=== PATIENT | male | born 1965 | race Caucasian/White ===

== ENCOUNTER 2020-07-01 11:21 | Emergency (ER) | payer SELFPAY ==
[~2020-07-01] VITALS: Ht 175.3 cm; Wt 180.0 kg
[2020-07-01 11:55] LABS: BASO # 0.1 x10^3/uL (0.0-0.2); BASO % 1 % (0-3); EOS # 0.1 x10^3/uL (0.0-0.7); EOS % 1 % (0-3); HEMATOCRIT 40.9 % (39.0-53.0); HEMOGLOBIN 13.6 g/dL (13.0-17.5); LYMPH % 9 % (24-48); MEAN CORPUSCULAR HEMOGLOBIN 33 pg (25-35); MEAN CORPUSCULAR HGB CONC 33 g/dL (31-37); MEAN CORPUSCULAR VOLUME 100 fL (79-100); MONO # 0.6 x10^3/uL (0.0-1.1); MONO % 5 % (0-9); NEUT # 8.9 x10^3uL (1.8-7.7); NEUT % 84 % (31-73); PLATELET COUNT 232 x10^3/uL (140-400); RED BLOOD COUNT 4.08 x10^6/uL (4.30-5.70); RED CELL DISTRIBUTION WIDTH 16.5 % (11.5-14.5); WHITE BLOOD COUNT 10.5 x10^3/uL (4.0-11.0)
[2020-07-01 11:59] LABS: CALCIUM 6.9 mg/dL (8.5-10.1); CREATININE 0.9 mg/dL (0.7-1.3); GFR 88.6
[2020-07-01 12:02] LABS: POTASSIUM 3.7 mmol/L (3.5-5.1)
[2020-07-01 12:07] LABS: ALBUMIN 2.8 g/dL (3.4-5.0); ALBUMIN/GLOBULIN RATIO 0.9 (1.0-1.7); TOTAL BILIRUBIN 0.3 mg/dL (0.2-1.0); TOTAL PROTEIN 5.8 g/dL (6.4-8.2)
[2020-07-01] MEDS ORDERED: ONDANSETRON PF 4 MG/2 ML VIAL. IVP ONE (12:15)
--- NOTE | 2020-07-01 12:44 | PHYS DOC ---
Past History Past Medical History: No Pertinent History, Other Additional Past Medical Histor: unknown Past Surgical History: Other Additional Past Surgical Histo: unknown Alcohol Use: Heavy Adult General Chief Complaint Chief Complaint: ALCOHOL INTOXICATION HPI HPI Patient is a 54-year-old male with past medical history of alcoholism who presents to the emergency room after being found in the road intoxicated. Patient had a liter of vodka code with him. Patient is unable to provide a history and does not answer very many questions. According to EMS he had normal glucose prior to arrival and they got a temperature of 97.7 on the patient. He is well-known to EMS as they picked him up often for alcohol intoxication after being found in the street. Review of Systems Review of Systems Unable to obtain due to intoxication Current Medications Current Medications Current Medications Medications (Trade) Dose Ordered Sig/Paty Start Time Stop Time Status Last Admin Dose Admin Ondansetron HCl (Zofran) 4 mg 1X ONCE 07/01/20 12:15 07/01/20 12:19 DC Allergies Allergies Allergies Coded Allergies Type Severity Reaction Last Updated Verified No Known Drug Allergies 07/01/20 No Physical Exam Physical Exam General: Awake, lethargic, cooperative, intoxicated HEENT: Abrasion to forehead, EOMI, PERRL, airway patent, moist oral mucosa Neck: Supple, trachea midline Respiratory: CTA bilaterally, normal effort, no wheezing/crackles CV: RRR, no murmur, cap refill <2 GI: Soft, nondistended, nontender, no masses MSK: No obvious deformities Skin: Warm, dry, intact Neuro: A&O x3, speech slowed and slurred, sensory and motor grossly intact, no focal deficits Psych: Normal affect, normal mood, not suicidal or homicidal Current Patient Data Vital Signs Vital Signs Date Time Temp Pulse Resp B/P (MAP) Pulse Ox O2 Delivery O2 Flow Rate FiO2 07/01/20 11:40 96.6 14 120/76 (91) 89 Room Air Lab Results Laboratory Tests Test 07/01/20 11:35 White Blood Count 10.5 x10^3/uL (4.0-11.0) Red Blood Count 4.08 x10^6/uL (4.30-5.70) L Hemoglobin 13.6 g/dL (13.0-17.5) Hematocrit 40.9 % (39.0-53.0) Mean Corpuscular Volume 100 fL (79-100) Mean Corpuscular Hemoglobin 33 pg (25-35) Mean Corpuscular Hemoglobin Concent 33 g/dL (31-37) Red Cell Distribution Width 16.5 % (11.5-14.5) H Platelet Count 232 x10^3/uL (140-400) Neutrophils (%) (Auto) 84 % (31-73) H Lymphocytes (%) (Auto) 9 % (24-48) L Monocytes (%) (Auto) 5 % (0-9) Eosinophils (%) (Auto) 1 % (0-3) Basophils (%) (Auto) 1 % (0-3) Neutrophils # (Auto) 8.9 x10^3uL (1.8-7.7) H Lymphocytes # (Auto) 1.0 x10^3/uL (1.0-4.8) Monocytes # (Auto) 0.6 x10^3/uL (0.0-1.1) Eosinophils # (Auto) 0.1 x10^3/uL (0.0-0.7) Basophils # (Auto) 0.1 x10^3/uL (0.0-0.2) Sodium Level 142 mmol/L (136-145) Potassium Level 3.7 mmol/L (3.5-5.1) Chloride Level 103 mmol/L (98-107) Carbon Dioxide Level 32 mmol/L (21-32) Anion Gap 7 (6-14) Blood Urea Nitrogen 13 mg/dL (8-26) Creatinine 0.9 mg/dL (0.7-1.3) Estimated GFR (Cockcroft-Gault) 88.6 BUN/Creatinine Ratio 14 (6-20) Glucose Level 124 mg/dL (70-99) H Calcium Level 6.9 mg/dL (8.5-10.1) L Total Bilirubin 0.3 mg/dL (0.2-1.0) Aspartate Amino Transferase (AST) 83 U/L (15-37) H Alanine Aminotransferase (ALT) 69 U/L (16-63) H Alkaline Phosphatase 66 U/L (46-116) Total Protein 5.8 g/dL (6.4-8.2) L Albumin 2.8 g/dL (3.4-5.0) L Albumin/Globulin Ratio 0.9 (1.0-1.7) L Ethyl Alcohol Level 503 mg/dL (0-10) *H EKG EKG [] Radiology/Procedures Radiology/Procedures [] Heart Score Risk Factors: Risk Factors: DM, Current or recent (<one month) smoker, HTN, HLP, family history of CAD, obesity. Risk Scores: Risk Factors: DM, Current or recent (<one month) smoker, HTN, HLP, family history of CAD, obesity. Course & Med Decision Making Course & Med Decision Making Pertinent Labs and Imaging studies reviewed. (See chart for details) Patient is a 54-year-old male who presents to the emergency room after being found in the snow. Patient appears to be intoxicated. He does have signs of trauma to his head. Given this we will do a CT to rule out intracranial hemorrhage. Alcohol level is 500. Patient will be observed here in the emergency room until clinically sober. Patient has a right frontal subdural hematoma that appears acute. I have discussed the case with Dr. Hays's nurse practitioner Sujey at [facility]. We will transfer him to [facility] for reevaluation. Plan discussed with patient. Dragon Disclaimer Dragon Disclaimer This electronic medical record was generated, in whole or in part, using a voice recognition dictation system. Departure Departure: Impression: Primary Impression: Subdural hematoma Additional Impression: Alcohol intoxication Disposition: 02 DC/TRF OTHER SHORT TERM HOS Condition: STABLE Referrals: PCP,NO (PCP) Problem Qualifiers BRENDA MILLER MD Jul 01, 2020 12:44
--- NOTE | 2020-07-01 12:59 | RAD ---
CT HEAD AND C-SPINE WO History: Reason: trauma, intoxicated / Spl. Instructions: / History: . Pain Comparison: None. Technique: Noncontrast CT imaging was performed of the head and cervical spine. Coronal and sagittal reconstructions were performed. Exposure: One or more of the following individualized dose reduction techniques were utilized for thi s examination: 1. Automated exposure control 2. Adjustment of the mA and/or kV according to patient size 3. Use of iterative reconstruction technique. Findings: Head CT: Small acute right anterior frontal extra-axial subdural hematoma. Maximal thickness 4 mm. Po ssible small right posterior parafalcine subdural hematoma. Small potential left cerebral convexity l ow-attenuation extra-axial collection maximal thickness 3 mm. No midline shift. No hydrocephalus. Right anterior scalp soft tissue swelling. Imaged orbits are unremarkable. Right maxillary sinus mucous retention cyst. Mild inferior maxillary sinus mucosal thickening. Mastoid air cells are clear. No acute calvarial fracture. Cervical spine CT: Straightening of the normal cervical lordosis. Grade 1 anterolisthesis C2 on C3. Normal vertebral bod y height. No fracture. Moderate degenerative disc changes most prominent C5-C6 and C6-C7. Facet arthropathy. Left C2-C3 face t joint fusion. Soft tissues unremarkable. Impression: Head CT: 1. Small acute right frontal subdural hematoma. 2. Possible small right posterior parafalcine subdural hematoma. 3. Small left cerebral convexity low-attenuation subdural collection, may represent chronic subdural hematoma or hygroma. MRI can further evaluate if clinically indicated. 4. Anterior scalp soft tissue swelling. Cervical spine CT: 1. No acute fracture or subluxation of the cervical spine. 2. Multilevel cervical spondylosis. FOR INTERNAL CODING PURPOSES Critical result: Findings discussed with Dr. Rock at 07/01/2020 12:51 PM. RESULT CODE: (C) Electronically signed by: Maicol Jensen DO (07/01/2020 12:57 PM) [id number]
[2020-07-01 18:45] VITALS: BP 100/62
== END 2020-07-01 19:15 | disposition short-term general hospital (02) ==
LOC: ER 11:21
DX: S06.5X9A Traumatic subdural hemorrhage with loss of consciousness of unspecified duration, initial encounter (principal); X58.XXXA Exposure to other specified factors, initial encounter; Y93.89 Activity, other specified; Y92.89 Other specified places as the place of occurrence of the external cause; Y99.8 Other external cause status; F10.229 Alcohol dependence with intoxication, unspecified; Y90.8 Blood alcohol level of 240 mg/100 ml or more
CPT/HCPCS: 36415; 70450; 72125; 80053; 85025; 85610; 85730; 96374; 99285; G0480; J2405

== ENCOUNTER 2020-07-03 14:57 | Emergency (ER) | payer SELFPAY ==
[~2020-07-03] VITALS: Ht 175.3 cm; Wt 81.0 kg
[2020-07-03 15:37] LABS: BASO # 0.1 x10^3/uL (0.0-0.2); BASO % 1 % (0-3); EOS # 0.1 x10^3/uL (0.0-0.7); EOS % 1 % (0-3); HEMATOCRIT 47.2 % (39.0-53.0); HEMOGLOBIN 15.2 g/dL (13.0-17.5); LYMPH # 1.4 x10^3/uL (1.0-4.8); LYMPH % 16 % (24-48); MEAN CORPUSCULAR HEMOGLOBIN 33 pg (25-35); MEAN CORPUSCULAR HGB CONC 32 g/dL (31-37); MEAN CORPUSCULAR VOLUME 102 fL (79-100); MONO # 0.7 x10^3/uL (0.0-1.1); MONO % 7 % (0-9); NEUT # 6.8 x10^3uL (1.8-7.7); NEUT % 75 % (31-73); PLATELET COUNT 202 x10^3/uL (140-400); RED BLOOD COUNT 4.63 x10^6/uL (4.30-5.70); RED CELL DISTRIBUTION WIDTH 16.9 % (11.5-14.5)
[2020-07-03 15:47] LABS: CALCIUM 7.6 mg/dL (8.5-10.1); CREATININE 0.9 mg/dL (0.7-1.3); GFR 88.6; POTASSIUM 3.6 mmol/L (3.5-5.1)
[2020-07-03 15:53] LABS: ALBUMIN 3.2 g/dL (3.4-5.0); TOTAL BILIRUBIN 0.2 mg/dL (0.2-1.0); TOTAL PROTEIN 6.4 g/dL (6.4-8.2)
--- NOTE | 2020-07-03 16:02 | RAD ---
EXAM: CT head and cervical spine without contrast INDICATION: Trauma COMPARISON: CT head and C-spine 07/01/2020 TECHNIQUE: Axial CT imaging through the head and cervical spine without intravenous contrast. Sagitta l and coronal reformats were obtained. One or more of the following individualized dose reduction techniques were utilized for this examinat ion: 1. Automated exposure control 2. Adjustment of the mA and/or kV according to patient size 3. Use of iterative reconstruction technique. FINDINGS: CT head: The tiny subdural hematomas on prior exam are decreased or resolved, not well visualized on this exam . There is no acute or enlarging intracranial hemorrhage. No acute infarct. The ventricles and sulci are unchanged. No midline shift. Basal cisterns are clear. No acute fracture. Mild mucosal thickening in the ethmoid air cells. Globes are intact. Right frontal scalp contusion unchanged. CT cervical spine: Evaluation is limited due to motion artifact. No acute fracture. There is straightening of lordosis. Alignment is normal. Moderate disc space time throughout the cervical spine, greatest at T7 where there are prominent anterior osteophytes is uncha nged. There is severe intervertebral joint proliferation and foraminal narrowing at C6-C7 and C5-C6. Moderate at C4-C5. There is multilevel facet arthrosis. Prevertebral soft tissues normal. IMPRESSION: 1. The tiny subdural hematomas on prior exam are decreased or resolved. There is no acute or enlargin g intracranial hemorrhage. 2. No acute osseous abnormality of the cervical spine. Unchanged degenerative disc disease and facet arthrosis. Electronically signed by: Yazmin Garcia MD (07/03/2020 4:00 PM) [id number]
--- NOTE | 2020-07-03 17:33 | PHYS DOC ---
Past History Past Medical History: No Pertinent History, Other Additional Past Medical Histor: Subdural bleed July 01 2020 Past Surgical History: Other Additional Past Surgical Histo: unknown Alcohol Use: Heavy Adult General Chief Complaint Chief Complaint: ALTERED MENTAL STATUS HPI HPI Patient is a 54-year-old male with a past medical history of alcoholism who presents to the emergency room with altered mental status. According to EMS they found him passed out with a bottle of vodka. They states that the patient has been unresponsive since they picked him up. Patient is unable to provide any history. Review of Systems Review of Systems Unable to obtain due to intoxication Allergies Allergies Allergies Coded Allergies Type Severity Reaction Last Updated Verified No Known Drug Allergies 07/01/20 No Physical Exam Physical Exam General: Lethargic, minimally responsive to pain. Well Nourished, well hydrated. Cooperative HEENT: Scabbed over abrasions to the right forehead, EOMI, PERRL, airway patent, moist oral mucosa Neck: Supple, trachea midline Respiratory: CTA bilaterally, normal effort, no wheezing/crackles CV: RRR, no murmur, cap refill <2 GI: Soft, nondistended, nontender, no masses MSK: No obvious deformities Skin: Warm, dry Current Patient Data Vital Signs Vital Signs Date Time Temp Pulse Resp B/P (MAP) Pulse Ox O2 Delivery O2 Flow Rate FiO2 07/03/20 15:05 97.4 88 26 113/81 (92) 98 2.0 Lab Results Laboratory Tests Test 07/03/20 15:09 07/03/20 15:20 Sodium Level 141 mmol/L (136-145) Potassium Level 3.6 mmol/L (3.5-5.1) Chloride Level 101 mmol/L (98-107) Carbon Dioxide Level 33 mmol/L (21-32) H Anion Gap 7 (6-14) Blood Urea Nitrogen 10 mg/dL (8-26) Creatinine 0.9 mg/dL (0.7-1.3) Estimated GFR (Cockcroft-Gault) 88.6 BUN/Creatinine Ratio 11 (6-20) Glucose Level 119 mg/dL (70-99) H Calcium Level 7.6 mg/dL (8.5-10.1) L Total Bilirubin 0.2 mg/dL (0.2-1.0) Aspartate Amino Transferase (AST) 111 U/L (15-37) H Alanine Aminotransferase (ALT) 92 U/L (16-63) H Alkaline Phosphatase 85 U/L (46-116) Total Protein 6.4 g/dL (6.4-8.2) Albumin 3.2 g/dL (3.4-5.0) L Albumin/Globulin Ratio 1.0 (1.0-1.7) White Blood Count 9.0 x10^3/uL (4.0-11.0) Red Blood Count 4.63 x10^6/uL (4.30-5.70) Hemoglobin 15.2 g/dL (13.0-17.5) Hematocrit 47.2 % (39.0-53.0) Mean Corpuscular Volume 102 fL (79-100) H Mean Corpuscular Hemoglobin 33 pg (25-35) Mean Corpuscular Hemoglobin Concent 32 g/dL (31-37) Red Cell Distribution Width 16.9 % (11.5-14.5) H Platelet Count 202 x10^3/uL (140-400) Neutrophils (%) (Auto) 75 % (31-73) H Lymphocytes (%) (Auto) 16 % (24-48) L Monocytes (%) (Auto) 7 % (0-9) Eosinophils (%) (Auto) 1 % (0-3) Basophils (%) (Auto) 1 % (0-3) Neutrophils # (Auto) 6.8 x10^3uL (1.8-7.7) Lymphocytes # (Auto) 1.4 x10^3/uL (1.0-4.8) Monocytes # (Auto) 0.7 x10^3/uL (0.0-1.1) Eosinophils # (Auto) 0.1 x10^3/uL (0.0-0.7) Basophils # (Auto) 0.1 x10^3/uL (0.0-0.2) Ethyl Alcohol Level 577 mg/dL (0-10) *H EKG EKG [] Radiology/Procedures Radiology/Procedures [] Heart Score Risk Factors: Risk Factors: DM, Current or recent (<one month) smoker, HTN, HLP, family history of CAD, obesity. Risk Scores: Risk Factors: DM, Current or recent (<one month) smoker, HTN, HLP, family history of CAD, obesity. Course & Med Decision Making Course & Med Decision Making Pertinent Labs and Imaging studies reviewed. (See chart for details) Patient is 54-year-old male who presents to the emergency room with altered mental status. Neurologic exam is unable to be performed due to patient's lethargy. He is minimally responsive to pain. Given that this is likely due to alcohol did refrain from intubating the patient initially. I did see this patient 2 days ago for similar presentation. At that time he did have a small subdural and was sent to [facility] where he was evaluated by the neurosurgeon who discharged him yesterday. Upon arrival and altered mental status work-up was ordered including CBC, BMP, alcohol level, drug screen. CT head and cervical spine were ordered as it is unclear at this time the cause of patient's altered mental status. CT head and cervical spine are normal. Alcohol level is 577. This is likely cause of his altered mental status. Patient did start coming around shortly after arrival to the emergency room. He continues to have slurred speech. He is moving all extremities. Patient discussed with oncoming physician who will assume care. Patient will need to be observed until clinically sober when he can be reevaluated. Dragon Disclaimer Dragon Disclaimer This electronic medical record was generated, in whole or in part, using a voice recognition dictation system. Departure Departure: Impression: Primary Impression: Altered mental status Additional Impression: Alcohol intoxication Referrals: PCP,NO (PCP) Problem Qualifiers BRENDA MILLER MD Jul 03, 2020 17:33
[2020-07-03 18:40] VITALS: BP 110/79
== END 2020-07-03 21:29 | disposition home or self-care (01) ==
LOC: ER 14:57
DX: S00.81XA Abrasion of other part of head, initial encounter (principal); R41.82 Altered mental status, unspecified; F10.129 Alcohol abuse with intoxication, unspecified; Y90.8 Blood alcohol level of 240 mg/100 ml or more; W22.8XXA Striking against or struck by other objects, initial encounter; Y93.89 Activity, other specified; Y92.89 Other specified places as the place of occurrence of the external cause; Y99.8 Other external cause status
CPT/HCPCS: 36415; 70450; 72125; 80053; 85025; 99285; G0480